=== PATIENT | female | born 1965 | race Caucasian/White ===

== ENCOUNTER 2017-08-30 06:00 | Observation (INO) | payer OTHER ==
[2017-08-30] MEDS ORDERED: BUPIVACAINE 0.25% (MPF) 30 ML INJ (07:15)
[2017-08-30] MEDS ORDERED: FENTAnyl 50 MCG/ML VIAL ×2 (07:26→08:39)
[2017-08-30] MEDS ORDERED: MIDAZOLAM 1 MG/ML 2 ML INJ (07:26)
[2017-08-30] MEDS ORDERED: PROPOFOL 20 ML (07:26)
[2017-08-30] MEDS ORDERED: GLYCOPYRROLATE 0.4 MG INJ (07:26)
[2017-08-30] MEDS ORDERED: NEOSTIGMINE 3 MG/3 ML SYRINGE (07:26)
[2017-08-30] MEDS ORDERED: ROCURONIUM 50 MG INJ (07:26)
[2017-08-30] MEDS ORDERED: CEFAZOLIN 1 GM INJ (07:26)
[2017-08-30] MEDS ORDERED: DEXAMETHASONE 4 MG/ML 1 ML INJ (07:27)
[2017-08-30] MEDS ORDERED: ONDANSETRON 4 MG INJ (07:27)
[2017-08-30] MEDS: BUPIVACAINE 0.25%/EPI (SDV) 30 ML INJ INJ (08:13)
[2017-08-30] MEDS: POLYMYXIN/BACITRACIN 1L IRRIG (08:14)
[2017-08-30] MEDS: THROMBIN 5000 UNIT VIAL (08:14)
[2017-08-30] MEDS ORDERED: LABETALOL HCL 20MG INJ IV ×2 (09:00)
[2017-08-30] MEDS ORDERED: ALBUTEROL 0.083% (NEB) 2.5 MG/3 ML AMP HHN ×2 (09:00)
[2017-08-30] MEDS ORDERED: TRIMETHOBENZAMIDE 100 MG/ML VIAL IM ×2 (09:00)
[2017-08-30] MEDS ORDERED: IPRATROPIUM (NEB) 0.5 MG/2.5 ML AMP HHN ×2 (09:00)
[2017-08-30] MEDS ORDERED: hydrALAzine 20 MG INJ IV ×2 (09:00)
[2017-08-30] MEDS ORDERED: MIDAZOLAM 1 MG/ML 2 ML INJ IV ×2 (09:00)
[2017-08-30] MEDS ORDERED: HYDROmorphONE (0.2 MG/ML) 10ML SYG IV ×5 (09:00)
[2017-08-30] MEDS ORDERED: OXYCODONE/ACETAMINOPHEN (5/325) TAB PO ×4 (09:00)
[2017-08-30] MEDS ORDERED: DIPHENHYDRAMINE 50 MG INJ IV ×2 (09:00)
[2017-08-30] MEDS ORDERED: MEPERIDINE 25 MG INJ IV ×2 (09:00)
[2017-08-30] MEDS ORDERED: ONDANSETRON 4 MG INJ IV ×2 (09:00→10:30)
[2017-08-30] MEDS ORDERED: FENTAnyl 50 MCG/ML VIAL IV ×6 (09:00)
[2017-08-30] MEDS ORDERED: EPHEDrine SULFATE 50 MG/5 ML SYG IV ×2 (09:00)
[2017-08-30] MEDS: BETAMET NA PHOS/AC(6 MG/ML) 5ML INJ (09:55)
[2017-08-30] MEDS: GELATIN SIZE 100 SPONGE (09:55)
[2017-08-30] MEDS ORDERED: SUGAMMADEX SODIUM 200 MG/2 ML VIAL IV (10:01)
[2017-08-30] MEDS ORDERED: PROCHLORPERAZINE 10 MG TAB PO (10:30)
[2017-08-30] MEDS ORDERED: NACL 0.9% 3 ML SYG IV (10:30)
[2017-08-30] MEDS: ONDANSETRON 4 MG INJ IV ×2 (10:31→15:27)
[2017-08-30] MEDS: HYDROmorphONE (0.2 MG/ML) 10ML SYG IV ×2 (11:01→11:20)
[2017-08-30] MEDS: ACETAMINOPHEN 325 MG TAB PO ×2 (14:34→17:54)
[2017-08-30] MEDS: HYDROCODONE/APAP (5/325) TAB PO ×2 (16:03→19:48)
[2017-08-30] MEDS: CEFAZOLIN 2 GM/50 ML (PMX) 50 ML IVPB (17:35)
[2017-08-30] MEDS: LACTATED RINGER'S 1,000 ML IV (18:14)
[2017-08-31] MEDS: SOD CHLORIDE 0.9% 500 ML IV (01:12)
[2017-08-31] MEDS: ACETAMINOPHEN 325 MG TAB PO (01:28)
[2017-08-31] MEDS: LACTATED RINGER'S 1,000 ML IV ×2 (02:14→04:21)
[2017-08-31] MEDS: SUMATRIPTAN 6 MG/0.5 ML INJ SC (03:00)
[2017-08-31] MEDS ORDERED: SOD CHLORIDE 0.9% 1,000 ML IV (06:00)
[2017-08-31] MEDS: HYDROCODONE/APAP (5/325) TAB PO ×2 (06:47→10:56)
[2017-08-31] MEDS ORDERED: KETOROLAC 30 MG INJ IV (07:00)
[2017-08-31 07:17] LABS: ADD MAN DIFF? NO
[2017-08-31 07:23] LABS: BASOPHILS % 0.1 % (0.0-2.0); HEMATOCRIT 33.1 % (37.0-47.0); HEMOGLOBIN 10.9 g/dl (12.0-16.0); LYMPHOCYTES # 1.3 10^3/ul (0.8-2.9); LYMPHOCYTES % 15.7 % (15.0-51.0); MEAN CORPUSCULAR HEMOGLOBIN 29.5 pg (29.0-33.0); MEAN CORPUSCULAR HGB CONC 32.9 g/dl (32.0-37.0); MEAN CORPUSCULAR VOLUME 89.7 fl (82.0-101.0); MEAN PLATELET VOLUME 12.4 fl (7.4-10.4); MONOCYTE # 0.6 10^3/ul (0.3-0.9); MONOCYTES % 7.6 % (0.0-11.0); NEUTROPHIL # 6.5 10^3/ul (1.6-7.5); NEUTROPHILS % 76.2 % (39.0-77.0); PLATELET COUNT 131 10^3/UL (140-415); RED BLOOD COUNT 3.69 10^6/ul (4.20-5.40); RED CELL DISTRIBUTION WIDTH 11.6 % (11.5-14.5)
[2017-08-31 07:23] LABS: WHITE BLOOD COUNT 8.5 10^3/ul (4.8-10.8)
[2017-08-31 07:47] LABS: ALANINE AMINOTRANSFERASE 36 IU/L (13-69); ALBUMIN 3.6 g/dl (3.3-4.9); ALBUMIN/GLOBULIN RATIO 1.56; ALKALINE PHOSPHATASE 42 IU/L (42-121); ANION GAP 11 (8-16); ASPARTATE AMINO TRANSFERASE 26 IU/L (15-46); BILIRUBIN,INDIRECT 0.2 mg/dl (0-1.1); BILIRUBIN,TOTAL 0.2 mg/dl (0.2-1.3); BLOOD UREA NITROGEN 9 mg/dl (7-20); CALCIUM 9.1 mg/dl (8.4-10.2); CARBON DIOXIDE 30 mmol/L (21-31); CHLORIDE 107 mmol/L (97-110); CREATININE 0.68 mg/dl (0.44-1.00); GLUCOSE 100 mg/dl (70-220); POTASSIUM 4.8 mmol/L (3.5-5.1); SODIUM 143 mmol/L (135-144); TOTAL PROTEIN 5.9 g/dl (6.1-8.1)
[2017-08-31] MEDS: BUPROPION (XL) 150 MG TAB PO (09:05)
== END 2017-08-31 11:14 | disposition home or self-care (01) ==
LOC: SDS 06:00 → MS1 17:30 → SDS 17:27 → MS1 17:27
DX: M51.16 Intervertebral disc disorders with radiculopathy, lumbar region (principal); M48.061 Spinal stenosis, lumbar region without neurogenic claudication
CPT/HCPCS: 63030; 72100; 80053; 85025; 86850; 86900; 86901; 97116; 97161; 97530